=== PATIENT | female | born 1965 | race Two or more races ===

== ENCOUNTER 2025-02-01 19:44 | Emergency (ER) | payer OTHER ==
[~2025-02-01] VITALS: Ht 154.9 cm; Wt 67.0 kg
[2025-02-01] MEDS: ALBUTEROL SULF 2.5 MG/0.5ML(0.5%) NEB SOLN NEB ONE (20:40)
[2025-02-01] MEDS: IPRATROPIUM BROM 0.5 MG/2.5ML INH SOL NEB ONE (20:40)
[2025-02-01 21:03] LABS: Basophils # (auto) 0 10 ^3/uL (0-0.2); Basophils % (auto) 0.6 % (0.0-2.0); Eosinophils # (auto) 0.3 10 ^3/uL (0-0.8); Eosinophils % (auto) 4.2 % (0.0-7.0); Hematocrit 42.6 % (36.0-46.0); Lymphocytes # (auto) 3.8 10 ^3/uL (0.4-5.4); Mean Corpuscular Hemoglobin 30.6 pg (28.0-32.0); Mean Corpuscular Volume 92.8 fL (80.0-100.0); Monocytes # (auto) 0.7 10 ^3/uL (0-1.3); Neutrophils # (auto) 3.2 10 ^3/uL (1.6-8.6); Neutrophils % (auto) 39.2 % (37.0-80.0); Platelet Count (auto) 300 10^3/uL (140-450); Red Blood Cells 4.59 10^6/uL (4.0-5.20); Red Cell Distribution Width 13.3 % (11.8-14.3); White Blood Cell 8.1 10^3/uL (4.4-10.8)
[2025-02-01 21:09] LABS: Chloride 105 mmol/L (98-107); Potassium 3.9 mmol/L (3.5-5.1); Sodium 139 mmol/L (136-145)
[2025-02-01 21:10] LABS: Anion Gap 6 (5-15); Calcium 9.8 mg/dL (8.7-10.4); Carbon Dioxide 28 mmol/L (20-31)
[2025-02-01 21:15] LABS: BUN/Creatinine Ratio 17.7 (10.0-20.0); Blood Urea Nitrogen 20 mg/dL (9-23); Glucose 91 mg/dL (74-106)
--- NOTE | 2025-02-01 21:31 | DVH ---
EXAM: XY CHEST PORTABLE CLINICAL HISTORY: sob TECHNIQUE: Single AP view of the chest WID: COMPARISON: None FINDINGS: Lines and tubes: None Chest: The heart size and pulmonary vasculature is within normal limits. No pleural effusion, pneumothorax, or consolidation. The osseous structures are grossly intact. IMPRESSION: No acute cardiopulmonary abnormality.
--- NOTE | 2025-02-01 22:04 | ED.PDOC ---
SOB-HPI HPI Comments 59 y/o F, with a history of asthma, presents with significant other for c/o shortness of breath, productive cough, throat irritation, and fatigue, today. 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 Patient was commented to have positive sick contact with other family members in household, recently, while, initially, recovering from symptoms. She denies any chest pain, fever, chills, congestion, urinary symptoms, or other associated symptoms or modifiers at this time. Chief Complaint: Asthma Time Seen by MD: 21:45 Reviewed notes: Nurses Notes, Medications, Allergies Information Source: Patient, Significant Other Mode of Arrival: Ambulatory Severity: Moderate Timing: Weeks Duration: Since onset Past Medical History PAST MEDICAL HISTORY: Asthma Surgical History: Denies all surgeries ADVERTISING AGENCY MANAGER History: Denies all ADVERTISING AGENCY MANAGER Hx Family History Family History: Unknown Social History Smoker: Non-Smoker Alcohol: Denies ETOH Use Drugs: Denies Drug Use Lives In: Home Constitutional: reports: fatigue EENTM: reports: others (throat itchiness ) Respiratory: reports: cough, shortness of breath All Other Systems: Reviewed and Negative Physical Exam General Appearance: No Apparent Distress, Normal HEENT: Normal ENT Inspection, Pharynx Normal, TMs Normal Neck: Full Range of Motion, Non-Tender, Normal, Normal Inspection Respiratory: Chest Non-Tender, Lungs Clear, No Accessory Muscle Use, No Respiratory Distress, Normal Breath Sounds, Other (productive ocugh ) Cardiovascular: No Edema, No JVD, No Murmur, No Gallop, Normal Peripheral Pulses, Regular Rate/Rhythm Breast Exam: Deferred Gastrointestinal: No Organomegaly, Non Tender, No Pulsatile Mass, Normal Bowel Sounds, Soft Genitalia: Deferred Pelvic: Deferred Rectal: Deferred Extremities: No calf tenderness, Normal capillary refill, Normal inspection, Normal range of motion, Non-tender, No pedal edema Musculoskeletal : Apperance: Normal Neurologic: Alert, 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 Was a procedure done?: No Differential Dx Differential Diagnosis: Anxiety, Asthma, Bronchitis, Panic Attack, Pneumonia, URI X-Ray, Labs, Meds, VS Vital Signs Date Time Temp Pulse Resp B/P (MAP) Pulse Ox O2 Delivery O2 Flow Rate FiO2 02/01/25 20:40 18 95 Room Air* 0 21 02/01/25 19:44 98.6 77 18 166/106 (126) 96 98.6 Lab Test 02/01/25 20:52 Range/Units White Blood Count 8.1 4.4-10.8 10^3/uL Red Blood Count 4.59 4.0-5.20 10^6/uL Hemoglobin 14.0 12.2-16.2 g/dL Hematocrit 42.6 36.0-46.0 % Mean Corpuscular Volume 92.8 80.0-100.0 fL Mean Corpuscular Hemoglobin 30.6 28.0-32.0 pg Mean Corpuscular Hemoglobin Concent 33.0 32.0-36.0 g/dL Red Cell Distribution Width 13.3 11.8-14.3 % Platelet Count 300 140-450 10^3/uL Mean Platelet Volume 7.3 6.9-10.8 fL Neutrophils (%) (Auto) 39.2 37.0-80.0 % Lymphocytes (%) (Auto) 47.0 10.0-50.0 % Monocytes (%) (Auto) 9.0 0.0-12.0 % Eosinophils (%) (Auto) 4.2 0.0-7.0 % Basophils (%) (Auto) 0.6 0.0-2.0 % Neutrophils # (Auto) 3.2 1.6-8.6 10 ^3/uL Lymphocytes # (Auto) 3.8 0.4-5.4 10 ^3/uL Monocytes # (Auto) 0.7 0-1.3 10 ^3/uL Eosinophils # (Auto) 0.3 0-0.8 10 ^3/uL Basophils # (Auto) 0 0-0.2 10 ^3/uL Nucleated Red Blood Cells 0.0 % Sodium Level 139 136-145 mmol/L Potassium Level 3.9 3.5-5.1 mmol/L Chloride Level 105 98-107 mmol/L Carbon Dioxide Level 28 20-31 mmol/L Anion Gap 6 5-15 Blood Urea Nitrogen 20 9-23 mg/dL Creatinine 1.13 H 0.550-1.02 mg/dL Glomerular Filtration Rate Calc 57 >90 mL/min BUN/Creatinine Ratio 17.7 10.0-20.0 Serum Glucose 91 74-106 mg/dL Calcium Level 9.8 8.7-10.4 mg/dL Current Medications Medications (Trade) Dose Ordered Sig/Prashanth Route Start Time Stop Time Status Last Admin Albuterol (Ventolin Medneb) 2.5 mg ONCE ONCE NEB 02/01/25 20:15 02/01/25 20:16 DC 02/01/25 20:40 Ipratropium [place] (Atrovent Medneb) 0.5 mg ONCE ONCE NEB 02/01/25 20:15 02/01/25 20:16 DC 02/01/25 20:40 [place] [address] Ph: [phone] DIAGNOSTIC IMAGING Diagnostic Imaging Report : [id number] Signed PATIENT: denisse zendejas ACCT: [id number] UNIT: [id number] : 1965 LOC: ER ROOM / BED: / AGE / SEX: 59 / F ADM STATUS: REG ER SERVICE 27 ORDERING PHYSICIAN: NATHALIE WITT MD PROCEDURE(s): CXRP - CHEST PORTABLE REASON: sob ORDER NUMBER(s): [id number], ACCESSION NUMBER(s): [id number] EXAM: XY CHEST PORTABLE CLINICAL HISTORY: sob TECHNIQUE: Single AP view of the chest WID: COMPARISON: None FINDINGS: Lines and tubes: None Chest: The heart size and pulmonary vasculature is within normal limits. No pleural effusion, pneumothorax, or consolidation. The osseous structures are grossly intact. IMPRESSION: No acute cardiopulmonary abnormality. ATED BY: SHINE BAIRD MD DICTATED DATE/TIME: 02/01/252127 SIGNED BY: SHINE BAIRD MD SIGNED DATE/TIME: 02/01/252127 CC: Time of 1ST Reevaluation: 22:15 Reevaluation 1ST: Unchanged Patient Education/Counseling: Diagnosis, Treatment Family Education/Counseling: Diagnosis, Treatment Additional Information Previous visit documents reviewed: n/a The following tests were ordered, and results were reviewed by me: CXR, CBC, BMP Additional Information was gathered from interviewing the following independent historians: significant other I reviewed and agreed with the following test results read by other providers: CXR I discussed treatment and results with medical personnel and: Patient, significant other Departure 1 Departure Time of Disposition: 23:22 (Patient has a exacerbation however patient is breathing comfortably on room air now. We will discharge patient home with outpatient follow up) Impression: Primary Impression: Acute asthma Additional Impression: Viral syndrome Disposition: HOME / SELF CARE / HOMELESS Condition: Stable Additional Instructions: You likely had an asthma exacerbation. You should use your inhaler as directed. Your prescribed steroids and azithromycin. Please take as directed. It is important to follow up with the regular doctor within 1 week. If your symptoms worsen or you have any other concerns please return to the emergency room. e-Prescriptions Azithromycin (ZITHROMAX TABLET) 250 Mg Tb 250 MG PO DAILY for 5 Days, #5 TAB Prov: NATHALIE WTIT MD 02/01/25 Prednisone (Prednisone) 20 Mg Tab 40 MG PO DAILY for 5 Days, #10 MG Prov: NATHALIE WITT MD 02/01/25 Discharged With: Relative Critical Care Note Critical Care Time?: No Stability Stability form required: No Heart Score Heart Score: Heart Score Response (Comments) Value History N/A 0 EKG N/A 0 Age N/A 0 Risk Factors N/A 0 Troponin N/A 0 Total 0 I personally scribed for NATHALIE WITT MD ([email or web address]) on 02/01/25 at 22:04. Electronically submitted by Jacinto Sprague ([email or web address]). NATHALIE WITT MD Feb 01, 2025 22:04
[2025-02-01] MEDS ORDERED: AZIT-185 PO (23:23)
[2025-02-01] MEDS ORDERED: PRED20TA2 PO (23:23)
[2025-02-01 23:38] VITALS: BP 152/84; PULSE 72; RESP 72; TEMP 98; O2SAT 95
== END 2025-02-01 23:39 | disposition home or self-care (01) ==
LOC: ER 19:55
DX: J45.909 Unspecified asthma, uncomplicated (principal); B34.9 Viral infection, unspecified; R05.9 Cough, unspecified
CPT/HCPCS: 36415; 71045; 80048; 85025; 94640